=== PATIENT | male | born 1990 | race Caucasian/White ===

== ENCOUNTER 2019-10-30 17:21 | Emergency (ER) | payer SELFPAY ==
[~2019-10-30] VITALS: Ht 182.9 cm; Wt 94.3 kg
[2019-10-30 17:36] VITALS: BP 116/66
--- NOTE | 2019-10-30 17:37 | NUR ---
TRIAGE COMPLETE. VSS. RETURNED TO LOBBY WITH PARENT TO WAIT FOR BED IN ED.
[2019-10-30] MEDS ORDERED: KETOROLAC 60 MG/2 ML VIAL IM ONE (18:50)
--- NOTE | 2019-10-30 18:53 | NUR ---
29/M BIB SELF C/O LOW BACK PAIN S/P LIFTING WEIGHTS X 2 DAYS AGO.PATIENT STATES PAIN OF 6/10 AT THIS TIME. PATIENT POSITIONED FOR COMFORT; HOB ELEVATED; BEDRAILS UP X1; BED DOWN. ER MD MADE AWARE OF PT STATUS.
--- NOTE | 2019-10-30 19:12 | NUR ---
Pt report given to ROBERT SERRANO. Transfer of care at this time.
--- NOTE | 2019-10-30 19:12 | NUR ---
REPORT RECEIVED FROM MAGGIE ESCOBAR. ASSUMED CARE AT THIS TIME.
--- NOTE | 2019-10-30 19:16 | NUR ---
Patient discharged with v/s stable. Written and verbal after care instructions given and explained BY DR. HONG.Patient alert, oriented and verbalized understanding of instructions. Ambulatory with steady gait. All questions addressed prior to discharge. ID band removed. Patient advised to follow up with PMD. Rx of NAPROSYN given. Patient educated on indication of medication including possible reaction and side effects. Opportunity to ask questions provided and answered.
== END 2019-10-30 19:16 | disposition home or self-care (01) ==
LOC: MED 17:21
DX: S39.012A Strain of muscle, fascia and tendon of lower back, initial encounter (principal); X50.3XXA Overexertion from repetitive movements, initial encounter; Y93.B9 Activity, other involving muscle strengthening exercises; Y92.89 Other specified places as the place of occurrence of the external cause; Y99.8 Other external cause status
CPT/HCPCS: 96372; 99283; J1885

== ENCOUNTER 2020-09-14 19:28 | Emergency (ER) | payer MEDICAID, OTHER ==
[~2020-09-14] VITALS: Ht 182.9 cm; Wt 90.7 kg
[2020-09-14 19:34] VITALS: BP 140/80
--- NOTE | 2020-09-14 19:59 | NUR ---
SEEN AND EXAMINED BY DELBERT WITH ORDER AND CARRIED OUT.
--- NOTE | 2020-09-14 20:06 | NUR ---
SWAB DONE AND SENT TO LAB
[2020-09-14 20:52] VITALS: BP 140/80
--- NOTE | 2020-09-14 20:52 | NUR ---
Patient discharged with v/s stable. Written and verbal after care instructions given and explained. Patient alert, oriented and verbalized understanding of instructions. Ambulatory with steady gait. All questions addressed prior to discharge. ID band removed. Patient advised to follow up with PMD. Rx of NAPROSYN 500MG, ROBITUSSIN DM given. Patient educated on indication of medication including possible reaction and side effects. Opportunity to ask questions provided and answered.
--- NOTE | 2020-09-16 11:29 | NUR ---
+ covid result received from lab. Copy of result will be given to Linda at [facility]
== END 2020-09-14 20:52 | disposition home or self-care (01) ==
LOC: MED 19:28
DX: J06.9 Acute upper respiratory infection, unspecified (principal); Z20.828 Contact with and (suspected) exposure to other viral communicable diseases; Z98.890 Other specified postprocedural states
CPT/HCPCS: 99283; U0003

== ENCOUNTER 2021-03-21 10:33 | Emergency (ER) | payer OTHER ==
[~2021-03-21] VITALS: Ht 182.9 cm; Wt 88.5 kg
[2021-03-21 10:35] VITALS: BP 144/69
--- NOTE | 2021-03-21 10:45 | NUR ---
Patient ambulated to bed 10. RN evaluating the patient at bedside.
[2021-03-21] MEDS ORDERED: ONDANSETRON 4 MG ODT PO ONE (11:05)
[2021-03-21] MEDS ORDERED: DICYCLOMINE HCL LIQUID 20 MG, ALUMINUM HYD/MAG/SIMETHICONE 30 ML, LIDOCAINE VISCOUS 2% ... PO ONE ×3 (11:05)
[2021-03-21] MEDS ORDERED: AMOXIL/CLAVULANATE 875/125 MG 1 TAB PO ONE (11:10)
--- NOTE | 2021-03-21 11:15 | NUR ---
30 Y/OC MALE C/O NAUSEA,MID ABDOMINAL PAIN, MID CHEST PAIN X 2 DAYS AND C/O CONSTIPATION X 3 DAYS. DENIES MID CHEST PAIN AT THIS TIME. 10 MID ABD PAIN AT THIS TIME. ABD SOFT NON TENDER. BOWEL SOUNDS ACTIVE. PMH: DENIES NKA
[2021-03-21] MEDS ORDERED: LIDOCAINE VISCOUS 2% 20 ML UDC ONE (11:17)
[2021-03-21] MEDS ORDERED: ALUMINUM HYD/MAG/SIMETHICONE 30 ML UDC ONE (11:17)
[2021-03-21] MEDS ORDERED: DICYCLOMINE HCL LIQUID 10 MG/5 ML UDC ONE (11:17)
[2021-03-21] MEDS ORDERED: FAMO-90 PO (12:02)
[2021-03-21] MEDS ORDERED: DOCU-299 PO (12:02)
[2021-03-21] MEDS ORDERED: ONDA-24 PO (12:02)
[2021-03-21 12:08] VITALS: BP 144/69
--- NOTE | 2021-03-21 12:08 | NUR ---
Patient discharged with v/s stable. Written and verbal after care instructions given and explained. Patient alert, oriented and verbalized understanding of instructions. Ambulatory with steady gait. All questions addressed prior to discharge. ID band removed. Patient advised to follow up with PMD. Rx of COLACE, PEPCID, ZOFRAN ODT given. Patient educated on indication of medication including possible reaction and side effects. Opportunity to ask questions provided and answered.
== END 2021-03-21 12:08 | disposition home or self-care (01) ==
LOC: MED 10:33
DX: A05.9 Bacterial foodborne intoxication, unspecified (principal); K52.9 Noninfective gastroenteritis and colitis, unspecified; R11.2 Nausea with vomiting, unspecified; Z79.899 Other long term (current) drug therapy
CPT/HCPCS: 81002; 93005; 99284; Q0162

== ENCOUNTER 2021-08-26 18:10 | Emergency (ER) | payer OTHER ==
[~2021-08-26] VITALS: Ht 182.9 cm; Wt 92.5 kg
[~2021-08-26 18:10] MED LIST: DOCU-299 PO; FAMO-90 PO; ONDA-188 PO
[2021-08-26 18:28] VITALS: BP 123/73
--- NOTE | 2021-08-26 19:16 | NUR ---
PA NESSA EVALUATING PT
[2021-08-26 20:10] VITALS: BP 123/73
--- NOTE | 2021-08-26 20:10 | NUR ---
PT SEEN AND ASSESED BY JOSIE SZYMANSKI, NO NURSING INTERVENTIONS NEEDED
== END 2021-08-26 19:55 | disposition home or self-care (01) ==
LOC: MED 18:10
DX: Z11.3 Encounter for screening for infections with a predominantly sexual mode of transmission (principal); Z79.899 Other long term (current) drug therapy
CPT/HCPCS: 36415; 86592; 87491; 87529; 99283

== ENCOUNTER 2021-11-28 20:41 | Emergency (ER) | payer OTHER ==
[~2021-11-28] VITALS: Ht 182.9 cm; Wt 93.4 kg
[2021-11-28 21:00] VITALS: BP 132/75
--- NOTE | 2021-11-28 21:03 | NUR ---
TO LOBBY A/W BED AMBULATORY
[2021-11-28 22:23] LABS: BASOPHILS # (AUTO) 0.1 K/uL (0.00-0.22); BASOPHILS % (AUTO) 0.6 % (0.0-2.0); EOSINOPHILS % (AUTO) 0.3 % (0.0-4.0); HEMATOCRIT 44.4 % (36-52); HEMOGLOBIN 15.4 g/dL (12.0-18.0); LYMPHOCYTES # (AUTO) 2.8 K/uL (2.0-11.5); LYMPHOCYTES % (AUTO) 27.3 % (20.5-51.1); MEAN CORPUSCULAR HEMOGLOBIN 32 pg (27-31); MEAN CORPUSCULAR HGB CONC 35 g/dL (33-37); MEAN CORPUSCULAR VOLUME 92.4 fL (80-94); MONOCYTES # (AUTO) 0.7 K/uL (0.8-1.0); MONOCYTES % (AUTO) 6.5 % (1.7-9.3); NEUTROPHILS # (AUTO) 6.7 K/uL (1.8-7.7); NEUTROPHILS % (AUTO) 65.3 % (42.2-75.2); PLATELET COUNT (AUTO) 307 K/uL (140-450); RED BLOOD CELL COUNT(AUTO) 4.81 MIL/uL (4.20-6.10); RED CELL DISTRIBUTION WIDTH 12.9 % (11.6-13.7); WHITE BLOOD COUNT (AUTO) 10.2 K/uL (4.8-10.8)
[2021-11-28 23:00] LABS: ALBUMIN 3.9 g/dL (3.4-5.0); ANION GAP 12.3 (8-16); CARBON DIOXIDE 30.8 mmol/L (21-32); CREATININE 1.4 mg/dL (0.6-1.3); POTASSIUM 4.1 mmol/L (3.5-5.1); TOTAL BILIRUBIN 0.5 mg/dL (0.0-1.0)
[2021-11-28 23:36] VITALS: BP 132/75
--- NOTE | 2021-11-28 23:36 | NUR ---
Patient discharged with v/s stable. Written and verbal after care instructions given and explained. Patient verbalized understanding. Ambulatory with steady gait. All questions addressed prior to discharge. Advised to follow up with PMD.
== END 2021-11-28 23:27 | disposition home or self-care (01) ==
LOC: MED 20:41
DX: K40.90 Unilateral inguinal hernia, without obstruction or gangrene, not specified as recurrent (principal); Z79.899 Other long term (current) drug therapy
CPT/HCPCS: 36415; 80053; 83690; 85025; 99283